=== PATIENT | female | born 1985 | race Caucasian/White ===

== ENCOUNTER 2021-02-07 09:33 | Inpatient (IN) ==
[2021-02-07] MEDS ORDERED: CITRIC ACID/SODIUM CITRATE 30 ML UDCUP PO ONE (09:56)
[2021-02-07] MEDS ORDERED: ceFAZolin 2,000 MG/50 ML DUPLEX IV ONE (09:56)
[2021-02-07] MEDS ORDERED: FAMOTIDINE 20 MG/2 ML VIAL IV ONE ×2 (09:56→10:16)
[2021-02-07] MEDS: LACTATED RINGERS 1,000 ML IV SCH (10:00)
[2021-02-07] MEDS ORDERED: TERBUTALINE 1 MG/1 ML VIAL SUBCUT ONE (10:10)
[2021-02-07] MEDS ORDERED: CITRIC ACID/SODIUM CITRATE 30 ML UDCUP ONE (10:16)
[2021-02-07 10:17] LABS: Basophils % 0.3 % (0.0-0.8); Eosinophils % 0.2 % (0.00-10.9); Hematocrit 42.7 VOL% (35.7-47.0); Hemoglobin 14.3 GM/DL (12.0-16.0); Immature Granulocytes % 0.8 %; Immature Granulocytes Absolute 0.11 #; Lymphocytes # 1.9 10*3/uL (1.4-4.0); Lymphocytes % 14.6 % (21.3-54.2); Mean Corpuscular HGB Conc 33.5 GM/DL (32-36); Mean Corpuscular Volume 89.7 FL (87-102); Mean Platelet Volume 9.5 FL (9.6-12.0); Monocytes % 4.4 % (1.7-12.7); Neutrophils % 79.7 % (38.7-73.9); Platelet Count 252 T/CUMM (130-400); Red Blood Count 4.76 MC/CUMM (3.8-5.5); Red Cell Distribution Width 13.6 % (9.3-17.3)
[2021-02-07] MEDS ORDERED: miSOPROStoL 200 MCG TABLET ONE (10:27)
[2021-02-07] MEDS ORDERED: METHYLERGONOVINE 0.2 MG/1 ML AMP ONE (10:27)
[2021-02-07] MEDS ORDERED: OXYTOCIN/LR 20 UNIT/1,000 ML BAG IV ONE ×3 (10:27→11:53)
[2021-02-07] MEDS ORDERED: PHENYLEPHRINE 1 MG/10 ML SYRINGE IV ONE (10:32)
[2021-02-07] MEDS ORDERED: BUPIVACAINE SPINAL 0.75% 2 ML AMP SPINAL ONE (10:32)
[2021-02-07] MEDS ORDERED: ONDANSETRON 4 MG/2 ML VIAL ONE (10:32)
[2021-02-07 10:41] LABS: Albumin 3.2 G/DL (3.4-5.0); Bilirubin,Total 0.4 MG/DL (0.20-1.00); Calcium 9.2 MG/DL (8.5-10.1); Osmolality,Calculated 272.7 MOS/KG (273-304); Potassium 4.4 MMOL/L (3.5-5.1); Total Protein 7.4 G/DL (6.4-8.2)
[2021-02-07] MEDS ORDERED: TISSUE ADHESIVE 1 EACH APPLICATOR TOP ONE (10:52)
[2021-02-07] MEDS ORDERED: MIDAZOLAM 2 MG/2 ML VIAL ONE (11:10)
[2021-02-07] MEDS ORDERED: fentaNYL 100 MCG/2 ML VIAL ONE (11:11)
[2021-02-07] MEDS ORDERED: propofoL 200 MG/20 ML VIAL IV ONE ×2 (11:15→11:41)
[2021-02-07] MEDS ORDERED: ACETAMINOPHEN INJ 1,000 MG/100 ML VIAL IV ONE (11:18)
[2021-02-07] MEDS ORDERED: KETOROLAC 30 MG/1 ML VIAL ONE (11:24)
[2021-02-07] MEDS ORDERED: DEXAMETHASONE 4 MG/1 ML VIAL ONE (11:29)
[2021-02-07 11:34] LABS: Cord Venous Blood HCO3 21.6 MMOL/L; Cord Venous Blood PCO2 39.7 MMHG; Cord Venous Blood PO2 28.3
[2021-02-07 11:37] LABS: Bilirubin,Urine Negative (Negative); Blood, Urine Negative (Negative); Glucose,Urine (UA) Negative (Negative); Ketones,Urine Negative (Negative); Mucus,Urine Occasional /LPF (Occasional); Nitrite,Urine Negative (Negative); Protein,Urine Negative; Urine Appearance CLEAR (Clear); Urine Color Yellow (Yellow); Urine Specific Gravity 1.009 (1.001-1.035); Urine Urobilinogen < 2.0 EU/DL (0.2-1.0)
[2021-02-07] MEDS ORDERED: ONDANSETRON 4 MG/2 ML VIAL IV PRN (11:53)
[2021-02-07] MEDS ORDERED: SIMETHICONE CHEW 80 MG TABLET PO PRN (11:53)
[2021-02-07] MEDS ORDERED: ACETAMINOPHEN 325 MG TABLET PO PRN (11:53)
[2021-02-07] MEDS ORDERED: RHO(D) IMMUNE GLOBULIN 300 MCG SYRINGE IM ONE (11:53)
[2021-02-07] MEDS ORDERED: LACTATED RINGERS 1,000 ML IV SCH (12:00)
[2021-02-07] MEDS ORDERED: HYDROmorphone 2 MG/1 ML VIAL IV ONE (13:46)
[2021-02-07] MEDS ORDERED: KETOROLAC 30 MG/1 ML VIAL IV ONE (16:28)
[2021-02-07] MEDS ORDERED: ALBUTEROL 1.25 MG/3 ML NEB RESP TX ONE (17:29)
[2021-02-07 17:34] LABS: Basophils # 0.1 10*3/uL (0.0-0.2); Basophils % 0.2 % (0.0-0.8); Hemoglobin 12.7 GM/DL (12.0-16.0); Immature Granulocytes Absolute 0.22 #; Lymphocytes # 0.9 10*3/uL (1.4-4.0); Lymphocytes % 4.1 % (21.3-54.2); Mean Corpuscular HGB Conc 34.3 GM/DL (32-36); Mean Corpuscular Volume 89.6 FL (87-102); Mean Platelet Volume 9.4 FL (9.6-12.0); Monocytes % 3.1 % (1.7-12.7); Neutrophils % 91.6 % (38.7-73.9); Platelet Count 204 T/CUMM (130-400); Red Blood Count 4.13 MC/CUMM (3.8-5.5); Red Cell Distribution Width 13.4 % (9.3-17.3)
[2021-02-07 17:52] LABS: Anisocytosis 1+; Band Neutrophils 1 % (0-10); Lymphocytes 8 % (20-55); Macrocytosis Slight; Microcytosis 1+; Segmented Neutrophils 89 % (50-85); Total Cells Counted 100
[2021-02-07 17:53] LABS: Platelet Estimate Normal
[2021-02-07] MEDS: ceFAZolin 2,000 MG in SODIUM CHLORIDE 0.9% 100 ML IV SCH (17:58)
[2021-02-07] MEDS: ACETAMINOPHEN 500 MG TABLET PO PRN ×2 (18:03→23:46)
[2021-02-07] MEDS: DOCUSATE SODIUM 100 MG CAPSULE PO SCH (21:34)
[2021-02-07] MEDS: KETOROLAC 30 MG/1 ML VIAL IV SCH (23:47)
[2021-02-08] MEDS: LACTATED RINGERS 1,000 ML IV SCH (01:04)
[2021-02-08] MEDS: ceFAZolin 2,000 MG in SODIUM CHLORIDE 0.9% 100 ML IV SCH (02:03)
[2021-02-08 05:50] LABS: Basophils % 0.3 % (0.0-0.8); Eosinophils % 0.1 % (0.00-10.9); Hematocrit 31.7 VOL% (35.7-47.0); Immature Granulocytes % 0.5 %; Immature Granulocytes Absolute 0.08 #; Lymphocytes # 2.2 10*3/uL (1.4-4.0); Lymphocytes % 14.4 % (21.3-54.2); Mean Corpuscular HGB Conc 34.7 GM/DL (32-36); Mean Corpuscular Volume 90.8 FL (87-102); Mean Platelet Volume 9.5 FL (9.6-12.0); Monocytes % 5.3 % (1.7-12.7); Neutrophils % 79.4 % (38.7-73.9); Platelet Count 194 T/CUMM (130-400); Red Blood Count 3.49 MC/CUMM (3.8-5.5); Red Cell Distribution Width 13.7 % (9.3-17.3); White Blood Count 15.6 T/CUMM (4-12)
[2021-02-08] MEDS: ACETAMINOPHEN 500 MG TABLET PO PRN (05:59)
[2021-02-08] MEDS: KETOROLAC 30 MG/1 ML VIAL IV SCH (06:00)
[2021-02-08] MEDS: DOCUSATE SODIUM 100 MG CAPSULE PO SCH ×2 (09:01→20:08)
[2021-02-08] MEDS: MULTIVITAMIN (PRENATAL) TABLET PO SCH (09:03)
[2021-02-08] MEDS: MAGNESIUM HYDROXIDE SUSP 30 ML UDCUP PO PRN (10:58)
[2021-02-08] MEDS ORDERED: KETOROLAC 30 MG/1 ML VIAL IV ONE (13:07)
[2021-02-08] MEDS: IBUPROFEN 800 MG TABLET PO PRN (21:49)
[2021-02-09] MEDS: IBUPROFEN 800 MG TABLET PO PRN ×2 (07:18→14:55)
[2021-02-09] MEDS: DOCUSATE SODIUM 100 MG CAPSULE PO SCH ×2 (09:10→20:47)
[2021-02-09] MEDS: MULTIVITAMIN (PRENATAL) TABLET PO SCH (09:10)
[2021-02-09] MEDS: MAGNESIUM HYDROXIDE SUSP 30 ML UDCUP PO PRN (12:19)
[2021-02-10] MEDS: IBUPROFEN 800 MG TABLET PO PRN ×2 (06:17→11:38)
[2021-02-10 08:21] VITALS: BP 105/68
[2021-02-10] MEDS: MULTIVITAMIN (PRENATAL) TABLET PO SCH (08:59)
[2021-02-10] MEDS: DOCUSATE SODIUM 100 MG CAPSULE PO SCH (08:59)
[2021-02-10] MEDS: MAGNESIUM HYDROXIDE SUSP 30 ML UDCUP PO PRN (08:59)
== END 2021-02-10 13:05 | disposition home or self-care (01) | DRG 788 ==
LOC: N.LDOUT 09:33 → N.LD 09:35 → N.OB 14:43
PROVIDERS: ADMIT Student in an Organized Health Care Education/Training Program; ATTEND Student in an Organized Health Care Education/Training Program
PROC: LDCSECT (ICD-10-PCS; 2021-02-07 10:30)